=== PATIENT | female | born 1980 | race Caucasian/White ===

== ENCOUNTER 2022-01-19 17:06 | Emergency (ER) | payer MEDICAID ==
[~2022-01-19] VITALS: Ht 160 cm; Wt 70.0 kg
[2022-01-19 17:09] VITALS: BP 148/80
[2022-01-19] MEDS ORDERED: ACETAMINOPHEN 500MG TABLET PO ONE (18:45)
== END 2022-01-19 21:10 | disposition left against medical advice (07) ==
LOC: ER 17:06
DX: S09.8XXA Other specified injuries of head, initial encounter (principal); S16.1XXA Strain of muscle, fascia and tendon at neck level, initial encounter; S80.01XA Contusion of right knee, initial encounter; S40.011A Contusion of right shoulder, initial encounter; V49.59XA Passenger injured in collision with other motor vehicles in traffic accident, initial encounter; Y93.89 Activity, other specified; Y92.488 Other paved roadways as the place of occurrence of the external cause
CPT/HCPCS: 71045; 73030; 73560; 73590; 99284